=== PATIENT | female | born 1995 | race Caucasian/White ===

== ENCOUNTER 2017-07-23 10:39 | Emergency (ER) | payer OTHER ==
[2017-07-23 11:04] VITALS: BP 119/50
--- NOTE | 2017-07-23 12:22 | UC ---
Eye Complaint HPI - HPI Summary HPI Summary: WOKE THIS MORNING WITH RED EYE CRUSTED SHUT WITH GREEN GOOP. SLIGHTLY ITHCY. NO PAIN. - History of Current Complaint Chief Complaint: UCEye Stated Complaint: EYE COMPLAINT Time Seen by Provider: 07/23/17 11:32 Hx Obtained From: Patient Hx Last Menstrual Period: 06/30/17 ?: No Onset/Duration: Sudden Onset, Still Present Timing: Constant Severity Initially: Moderate Severity Currently: Moderate Pain Intensity: 0 Pain Scale Used: 0-10 Numeric Location of Injury: Conjunctiva Aggravating Factor(s): Nothing Alleviating Factor(s): Nothing Associated Signs And Symptoms: Positive: Drainage (Purulent). Negative: Vision Impairment Bilateral, Fever, Swelling - Risk Factors Penetrating Injury Risk Factor: Negative - Allergies/Home Medications Allergies/Adverse Reactions: Allergies Allergy/AdvReac Type Severity Reaction Status Date / Time Penicillins Allergy Anaphylatic Verified 07/23/17 10:59 Shock PMH/Surg Hx/FS Hx/Imm Hx Previously Healthy: Yes - Surgical History Surgical History: None - Family History Known Family History: Negative: Cardiac Disease, Hypertension, Diabetes - Social History Occupation: Employed Full-time Lives: With Family Alcohol Use: None Substance Use Type: None Smoking Status (MU): Light Every Day Tobacco Smoker Type: Cigarettes Amount Used/How Often: 3 CIGS/DAY Cessation Counseling: Patient Advised to Stop - Immunization History Most Recent Influenza Vaccination: 2017 Review of Systems Constitutional: Negative Skin: Negative Eyes: Drainage, Eye Redness ENT: Negative Respiratory: Negative Cardiovascular: Negative Gastrointestinal: Negative Neurological: Negative Is Patient Immunocompromised?: No All Other Systems Reviewed And Are Negative: Yes Physical Exam Triage Information Reviewed: Yes Vital Signs: Initial Vital Signs Temp 97.6 F 07/23/17 11:00 Pulse 73 07/23/17 11:00 Resp 16 07/23/17 11:00 BP 119/50 07/23/17 11:00 Pulse Ox 99 07/23/17 11:00 Vital Signs Reviewed: Yes Eyes: Positive: Conjunctiva Inflamed, Discharge - TRACE GREEN - Additional Comments Appearance: Well-Appearing, No Pain Distress, Well-Nourished ENT: TMs erythematous and bulging on R side. Pharyngeal erythema. Maxillary sinus tenderness bilaterally Neck: Normal, Supple Respiratory/Lung Sounds: Lungs clear, Normal breath sounds, No respiratory distress, No accessory muscle use Cardiovascular: RRR, No murmur Musculoskeletal: Normal Neurological: Alert, muscle tone normal Psychiatric: Normal, age appropriate behavior Skin: Normal, other -- Warm, Dry, Normal color VITAL SIGNS REVIEWED Eye Complaint Course/Dx - Differential Dx/Diagnosis Differential Diagnosis/HQI/PQRI: Conjunctivitis, Other - ALLERGIES Provider Diagnoses: CONJUNCTIVITIS Discharge - Discharge Plan Condition: Stable Disposition: HOME Prescriptions: Polymyx/Trimethoprim OPTH* [Polytrim OPHTH*] 1 drop LEFT EYE Q3H #1 btl Patient Education Materials: Conjunctivitis (ED) Referrals: No Primary Care Phys,NOPCP [Primary Care Provider] - Additional Instructions: FOLLOW-UP CARE: You should establish with a private physician for follow-up care in 3-5 days. If you are unable to get a timely appointment, or if you are worsening, call us or return for re-evaluation. An additional resource available to assist in finding the appropriate physician for your health care needs is the [facility]erral [facility]. You may contact them by calling [phone].
== END 2017-07-23 12:06 | disposition home or self-care (01) ==
LOC: UCCORT 10:39
DX: H10.32 Unspecified acute conjunctivitis, left eye (principal); F17.210 Nicotine dependence, cigarettes, uncomplicated; Z71.6 Tobacco abuse counseling
CPT/HCPCS: 99212; G0463

== ENCOUNTER 2017-08-12 10:59 | Emergency (ER) | payer OTHER ==
--- NOTE | 2017-08-12 12:16 | UC ---
Respiratory Complaint HPI - HPI Summary HPI Summary: 22 year old female with cough. FOR A MONTHS, RIBS HURT . COUGH. GREEN MUCUS. TODAY BLOOD STREAKED MUCUS. NO ENERGY. ACHEY. [ End ] - History of Current Complaint Chief Complaint: UCRespiratory Stated Complaint: COUGH,BILATERAL RIB PAIN Time Seen by Provider: 08/12/17 12:09 Hx Obtained From: Patient Hx Last Menstrual Period: 07/31/17 Onset/Duration: Gradual Onset Timing: Constant Severity Initially: Mild Character: Cough: Productive Associated Signs And Symptoms: Positive: Negative - Risk Factors Cardiac Risk Factors: Negative - Allergies/Home Medications Allergies/Adverse Reactions: Allergies Allergy/AdvReac Type Severity Reaction Status Date / Time Penicillins Allergy Anaphylatic Verified 08/12/17 11:45 Shock PMH/Surg Hx/FS Hx/Imm Hx Previously Healthy: Yes - Surgical History Surgical History: None - Family History Known Family History: Negative: Cardiac Disease, Hypertension, Diabetes - Social History Lives: Alone Alcohol Use: None Substance Use Type: None Smoking Status (MU): Light Every Day Tobacco Smoker Type: Cigarettes Amount Used/How Often: 2 CIGS PER DAY Household Exposure Type: Cigarettes Cessation Counseling: Patient Advised to Stop - Immunization History Most Recent Influenza Vaccination: 2017 Review of Systems ENT: Sore Throat, Nasal Discharge, Sinus Congestion Respiratory: Cough Is Patient Immunocompromised?: No All Other Systems Reviewed And Are Negative: Yes Physical Exam Triage Information Reviewed: Yes Appearance: Well-Appearing, No Pain Distress, Well-Nourished Vital Signs: Initial Vital Signs Temp 97.5 F 08/12/17 11:46 Pulse 72 08/12/17 11:46 Resp 20 08/12/17 11:46 BP 93/55 08/12/17 11:46 Pulse Ox 97 08/12/17 11:46 Vital Signs Reviewed: Yes Eye Exam: Normal ENT Exam: Normal ENT: Positive: Nasal congestion, Nasal drainage Dental Exam: Normal Neck exam: Normal Neck: Positive: 1 Respiratory Exam: Normal Cardiovascular Exam: Normal Musculoskeletal Exam: Normal Neurological Exam: Normal Psychological Exam: Normal Skin Exam: Normal UC Diagnostic Evaluation - Laboratory O2 Sat by Pulse Oximetry: 97 Respiratory Course/Dx - Course Course Of Treatment: U PREG NEG. XRAY NEG - Differential Dx/Diagnosis Differential Diagnosis/HQI/PQRI: Bronchitis, Lower Resp Infection, Sinusitis Provider Diagnoses: URI Discharge - Discharge Plan Condition: Good Disposition: HOME Prescriptions: Benzonatate [TESSALON 200 MG CAP] 200 mg PO TID #20 cap Fluticasone NASAL SPRAY 50MCG* [Flonase NASAL SPRAY 50MCG*] 2 spray BOTH NARES DAILY #1 btl Patient Education Materials: Upper Respiratory Infection (ED) Referrals: No Primary Care Phys,NOPCP [Primary Care Provider] - 4 Days
--- NOTE | 2017-08-12 12:50 | RAD ---
HISTORY: Cough COMPARISONS: None VIEWS: 4: Frontal dual-energy and lateral views of the chest. FINDINGS: CARDIOMEDIASTINAL SILHOUETTE: The cardiomediastinal silhouette is normal. REECE: The reece are normal. PLEURA: The costophrenic angles are sharp. No pleural abnormalities are noted. LUNG PARENCHYMA: The lungs are clear. ABDOMEN: The upper abdomen is clear. There is no subphrenic gas. BONES AND SOFT TISSUES: No bone or soft tissue abnormalities are noted. OTHER: None. IMPRESSION: NO ACTIVE CARDIOPULMONARY DISEASE.
[2017-08-12 12:59] VITALS: BP 94/68
== END 2017-08-12 13:16 | disposition home or self-care (01) ==
LOC: UCCORT 10:59
DX: J06.9 Acute upper respiratory infection, unspecified (principal); Z32.02 Encounter for pregnancy test, result negative; F17.210 Nicotine dependence, cigarettes, uncomplicated
CPT/HCPCS: 71020; 84702; 99212; G0463

== ENCOUNTER 2017-10-23 17:46 | Emergency (ER) | payer OTHER ==
[2017-10-23 18:05] VITALS: BP 102/58
--- NOTE | 2017-10-23 18:05 | UC ---
Throat Pain/Nasal Tyshawn HPI - HPI Summary HPI Summary: 22 year old female presents with complains of sore throat x 1 day. - History of Current Complaint Stated Complaint: SORE THROAT,RUNNY NOSE Time Seen by Provider: 10/23/17 18:04 Hx Obtained From: Patient Hx Last Menstrual Period: 07/31/17 Onset/Duration: Sudden Onset Severity: Moderate Pain Scale Used: 0-10 Numeric - 5 Cough: Nonproductive - Allergies/Home Medications Allergies/Adverse Reactions: Allergies Allergy/AdvReac Type Severity Reaction Status Date / Time Penicillins Allergy Anaphylatic Verified 10/23/17 18:05 Shock Home Medications: Home Medications Multivit-Min W/Fe-FA [ and Iron] 1 tab PO DAILY 10/23/17 [ History Confirmed 10/23/17] PMH/Surg Hx/FS Hx/Imm Hx Previously Healthy: Yes - Surgical History Surgical History: None - Family History Known Family History: Negative: Cardiac Disease, Hypertension, Diabetes - Social History Alcohol Use: None Substance Use Type: None Smoking Status (MU): Light Every Day Tobacco Smoker Type: Cigarettes Amount Used/How Often: 2 CIGS PER DAY Household Exposure Type: Cigarettes - Immunization History Most Recent Influenza Vaccination: 2017 Review of Systems Constitutional: Negative Skin: Negative Eyes: Negative ENT: Sore Throat, Nasal Discharge Respiratory: Negative Cardiovascular: Negative Gastrointestinal: Negative Genitourinary: Negative Motor: Negative Neurovascular: Negative Musculoskeletal: Negative Neurological: Negative Psychological: Negative All Other Systems Reviewed And Are Negative: Yes Physical Exam Triage Information Reviewed: Yes Vital Signs Reviewed: Yes Eye Exam: Normal ENT: Positive: Pharyngeal erythema, Nasal congestion, Nasal drainage, Sinus tenderness Dental Exam: Normal Neck exam: Normal Neck: Positive: 1 Respiratory Exam: Normal Cardiovascular Exam: Normal Abdominal Exam: Normal Musculoskeletal Exam: Normal Neurological Exam: Normal Psychological Exam: Normal Skin Exam: Normal Throat Pain/Nasal Course/Dx - Differential Dx/Diagnosis Provider Diagnoses: allergic rhinitis. pharyngitis Discharge - Discharge Plan Condition: Stable Disposition: HOME Prescriptions: LoraTADine TAB(NF) [Claritin 10 MG TAB(NF)] 10 mg PO DAILY #30 tab Patient Education Materials: Pharyngitis (ED), Allergic Rhinitis (ED) Forms: *Work Release Referrals: No Primary Care Phys,NOPCP [Primary Care Provider] -
== END 2017-10-23 18:38 | disposition home or self-care (01) ==
LOC: UCCORT 17:46
DX: J30.9 Allergic rhinitis, unspecified (principal); J02.9 Acute pharyngitis, unspecified; Z88.0 Allergy status to penicillin; F17.210 Nicotine dependence, cigarettes, uncomplicated
CPT/HCPCS: 87651; 99212; G0463

== ENCOUNTER 2018-01-27 09:32 | Emergency (ER) | payer OTHER ==
[2018-01-27 09:50] VITALS: BP 109/59
--- NOTE | 2018-01-27 10:06 | UC ---
Throat Pain/Nasal Tyshawn HPI - HPI Summary HPI Summary: [address] STARTED WITH SORE THROAT YESTERDAY, NOW HAS HEADACHE, COUGH , POSS FEBRILE AND BILATERAL EAR ACHES, WAS EXPOSED TO STREP AT HOME 10 days ago bf treated with strep . (+) cough. [ End ] - History of Current Complaint Chief Complaint: UCGeneralIllness Stated Complaint: SORE THROAT,EAR PAIN,HEADACHE Time Seen by Provider: 01/27/18 09:50 Hx Obtained From: Patient Hx Last Menstrual Period: 07/31/17 ?: No Onset/Duration: Sudden Onset Pain Intensity: 8 - Allergies/Home Medications Allergies/Adverse Reactions: Allergies Allergy/AdvReac Type Severity Reaction Status Date / Time Penicillins Allergy Anaphylatic Verified 01/27/18 09:42 Shock Home Medications: Home Medications Acetaminophen [Acetaminophen Extra Strength] 500 mg PO 01/27/18 [History] Citalopram TAB* [Celexa TAB*] 01/27/18 [History] PMH/Surg Hx/FS Hx/Imm Hx Previously Healthy: Yes - Surgical History Surgical History: None - Family History Known Family History: Negative: Cardiac Disease, Hypertension, Diabetes - Social History Alcohol Use: None Substance Use Type: None Smoking Status (MU): Light Every Day Tobacco Smoker Type: Cigarettes Amount Used/How Often: 1 CIG PER DAY Household Exposure Type: Cigarettes Cessation Counseling: Patient Advised to Stop - Immunization History Most Recent Influenza Vaccination: 2017 Review of Systems Constitutional: Fatigue ENT: Sore Throat, Nasal Discharge Respiratory: Cough Is Patient Immunocompromised?: No All Other Systems Reviewed And Are Negative: Yes Physical Exam Triage Information Reviewed: Yes Appearance: Well-Appearing, No Pain Distress, Well-Nourished Vital Signs: Initial Vital Signs Temp 98.8 F 01/27/18 09:41 Pulse 109 01/27/18 09:41 Resp 22 01/27/18 09:41 BP 109/59 01/27/18 09:41 Pulse Ox 100 01/27/18 09:41 Vital Signs Reviewed: Yes Eye Exam: Normal ENT Exam: Normal ENT: Positive: Pharynx normal, Nasal drainage, TMs normal. Negative: Tonsillar swelling, Tonsillar exudate Dental Exam: Normal Neck exam: Normal Neck: Positive: 1 Respiratory Exam: Normal Cardiovascular Exam: Normal Musculoskeletal Exam: Normal Neurological Exam: Normal Psychological Exam: Normal Skin Exam: Normal Throat Pain/Nasal Course/Dx - Differential Dx/Diagnosis Differential Diagnosis/HQI/PQRI: Otitis Media, Pharyngitis, Tonsillitis Provider Diagnoses: URI. Pharyngitis Discharge - Sign-Out/Discharge Documenting (check all that apply): Discharge - Discharge Plan Condition: Good Disposition: HOME Prescriptions: Benzonatate CAP* [Tessalon 100 MG CAP*] 100 mg PO TID PRN #20 cap PRN Reason: Cough Patient Education Materials: Pharyngitis (ED) Referrals: JANENE Lozano [Primary Care Provider] - If Needed - Billing Disposition and Condition Condition: GOOD Disposition: HOME
== END 2018-01-27 10:13 | disposition home or self-care (01) ==
LOC: UCCORT 09:32
DX: J06.9 Acute upper respiratory infection, unspecified (principal); J02.9 Acute pharyngitis, unspecified; Z20.89 Contact with and (suspected) exposure to other communicable diseases; Z88.0 Allergy status to penicillin; F17.210 Nicotine dependence, cigarettes, uncomplicated
CPT/HCPCS: 87651; 99212; G0463

== ENCOUNTER 2018-02-24 09:54 | Emergency (ER) | payer OTHER ==
[2018-02-24 10:34] VITALS: BP 93/60
[2018-02-24] MEDS ORDERED: Ondansetron ODT TAB* 4 MG PO ONE (10:54)
--- NOTE | 2018-02-24 10:54 | UC ---
UC General HPI - HPI Summary HPI Summary: pt is c/o nausea with vomiting x 3 since the early am. her 2 children just got over the same. denies fever, diarrhea, travel hx. is 33 weeks . no vaginal d/c or bleeding and baby is moving. feels fine otherwise. 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 nausea is now very mild. - History of Current Complaint Chief Complaint: UCGeneralIllness Stated Complaint: VOMITING/HOT-COLD CHILLS Time Seen by Provider: 02/24/18 10:47 Hx Obtained From: Patient Hx Last Menstrual Period: 07/31/17 Onset/Duration: Gradual Onset Pain Intensity: 0 Aggravating: food/drink Alleviating: gingerale Associated Signs & Symptoms: Positive: Nausea, Vomiting. Negative: Abdominal Pain, Diarrhea, Fever - Allergy/Home Medications Allergies/Adverse Reactions: Allergies Allergy/AdvReac Type Severity Reaction Status Date / Time Penicillins Allergy Anaphylatic Verified 02/24/18 10:29 Shock PMH/Surg Hx/FS Hx/Imm Hx - Additional Past Medical History Additional PMH: 33 weeks Psychological History: Depression - Surgical History Surgical History: Yes Surgery Procedure, Year, and Place: [place] teeth - Family History Known Family History: Negative: Cardiac Disease, Hypertension, Diabetes - Social History Occupation: Employed Full-time Lives: With Family Alcohol Use: None Substance Use Type: None Smoking Status (MU): Light Every Day Tobacco Smoker Type: Cigarettes Amount Used/How Often: 3-4 cigs per day Household Exposure Type: Cigarettes - Immunization History Most Recent Influenza Vaccination: 2017 Vaccination Up to Date: Yes Review of Systems Constitutional: Negative Skin: Negative Eyes: Negative ENT: Negative Respiratory: Negative Cardiovascular: Negative Gastrointestinal: Vomiting, Nausea Genitourinary: Negative Motor: Negative Neurovascular: Negative Musculoskeletal: Negative Neurological: Negative Psychological: Negative Is Patient Immunocompromised?: No All Other Systems Reviewed And Are Negative: Yes Physical Exam Triage Information Reviewed: Yes Appearance: Well-Appearing Vital Signs: Initial Vital Signs Temp 97.9 F 02/24/18 10:27 Pulse 84 02/24/18 10:27 Resp 19 02/24/18 10:27 BP 93/60 02/24/18 10:27 Pulse Ox 100 02/24/18 10:27 Eyes: Positive: Conjunctiva Clear ENT: Positive: Pharynx normal, TMs normal. Negative: Nasal congestion, Nasal drainage Neck: Positive: Supple, Nontender, No Lymphadenopathy Respiratory: Positive: Lungs clear, Normal breath sounds Cardiovascular: Positive: RRR, No Murmur Abdomen Description: Positive: Nontender, Soft, Other: - Gravid uterus. Negative: Distended, Guarding Bowel Sounds: Positive: Present Musculoskeletal: Positive: ROM Intact, No Edema Neurological: Positive: Alert Psychological: Positive: Normal Response To Family, Age Appropriate Behavior Skin Exam: Normal Course/Dx - Course Course Of Treatment: n/v already improving. pt drank Gingerale seating captain and here. had mild nausea here thus single dose of zofran given. not weak, tachycardic and taking po fluids thus IV not indicated. - Differential Dx - Multi-Symptom Provider Diagnoses: nausea, vomiting Discharge - Sign-Out/Discharge Documenting (check all that apply): Discharge - Discharge Plan Condition: Stable Disposition: HOME Patient Education Materials: Acute Nausea and Vomiting (ED) Forms: *Work Release Referrals: JANENE Lozano [Primary Care Provider] - 5 Days - Billing Disposition and Condition Condition: STABLE Disposition: HOME
== END 2018-02-24 11:11 | disposition home or self-care (01) ==
LOC: UCCORT 09:54
DX: O21.2 Late vomiting of pregnancy (principal); O99.333 Smoking (tobacco) complicating pregnancy, third trimester; Z3A.33 33 weeks gestation of pregnancy; Z88.0 Allergy status to penicillin
CPT/HCPCS: 99212; A9270-GY; G0463

== ENCOUNTER 2018-05-16 07:48 | Emergency (ER) | payer OTHER ==
[2018-05-16 08:07] VITALS: BP 96/64
--- NOTE | 2018-05-16 08:21 | UC ---
Respiratory Complaint HPI - HPI Summary HPI Summary: Cough congestion and sore throat for about 3 days. Her child has similar symptoms. Baby at home is well and no breast feeding. She denies fever or chest pain. - History of Current Complaint Chief Complaint: UCRespiratory Stated Complaint: SORE THROAT Time Seen by Provider: 05/16/18 08:13 Hx Obtained From: Patient Hx Last Menstrual Period: 06/2017 Onset/Duration: Gradual Onset, Lasting Days Timing: Constant Severity Initially: Moderate Severity Currently: Moderate Pain Intensity: 7 Character: Cough: Nonproductive Aggravating Factors: Deep Breaths, Recumbent Position Alleviating Factors: Upright Position, Spontaneous Resolution Associated Signs And Symptoms: Positive: URI, Nasal Congestion. Negative: Dyspnea, Fever, Chills, Calf Pain, Calf Swelling - Allergies/Home Medications Allergies/Adverse Reactions: Allergies Allergy/AdvReac Type Severity Reaction Status Date / Time Penicillins Allergy Anaphylatic Verified 05/16/18 08:08 Shock PMH/Surg Hx/FS Hx/Imm Hx Previously Healthy: Yes - Surgical History Surgical History: Yes Surgery Procedure, Year, and Place: [place] teeth - Family History Known Family History: Negative: Cardiac Disease, Hypertension, Diabetes - Social History Alcohol Use: None Substance Use Type: None Smoking Status (MU): Light Every Day Tobacco Smoker Type: Cigarettes Amount Used/How Often: 3-4 cigs per day Household Exposure Type: Cigarettes - Immunization History Most Recent Influenza Vaccination: 2017 Vaccination Up to Date: Yes Review of Systems ENT: Sore Throat, Sinus Congestion Respiratory: Cough All Other Systems Reviewed And Are Negative: Yes Physical Exam Triage Information Reviewed: Yes Appearance: Well-Appearing, No Pain Distress, Well-Nourished Vital Signs: Initial Vital Signs Temp 98.3 F 05/16/18 07:59 Pulse 65 05/16/18 07:59 Resp 18 05/16/18 07:59 BP 96/64 05/16/18 07:59 Pulse Ox 100 05/16/18 07:59 Vital Signs Reviewed: Yes Eyes: Positive: Conjunctiva Clear. Negative: Conjunctiva Inflamed ENT: Positive: Normal ENT inspection, Hearing grossly normal, Pharyngeal erythema, Nasal congestion, TMs normal, Uvula midline. Negative: Nasal drainage , TM bulging, TM dull, TM red, Tonsillar swelling, Tonsillar exudate, Trismus, Muffled voice, Hoarse voice, Sinus tenderness Neck: Positive: Supple, Nontender, No Lymphadenopathy Respiratory: Positive: Lungs clear, Normal breath sounds, No respiratory distress, No accessory muscle use. Negative: Respiratory distress, Decreased breath sounds, Accessory muscle use, Crackles, Rhonchi, Stridor, Wheezing Cardiovascular: Positive: No Murmur, Pulses Normal, Brisk Capillary Refill Abdomen Description: Positive: No Organomegaly, Soft. Negative: Distended, Guarding Musculoskeletal: Positive: Strength Intact, ROM Intact. Negative: No Edema Neurological: Positive: Alert, Muscle Tone Normal. Negative: Fatigued Psychological: Positive: Age Appropriate Behavior Skin: Negative: rashes UC Diagnostic Evaluation - Laboratory O2 Sat by Pulse Oximetry: 100 Respiratory Course/Dx - Differential Dx/Diagnosis Provider Diagnoses: viral uri Discharge - Sign-Out/Discharge Documenting (check all that apply): Patient Departure - Discharge Plan Condition: Good Disposition: HOME Prescriptions: GuaiFENesin DM* [Robitussin DM*] 10 ml PO Q4H PRN #180 ml PRN Reason: Cough Patient Education Materials: Upper Respiratory Infection (ED) Referrals: Oneida Lopez MD [Primary Care Provider] - Additional Instructions: Consider cough medicines and decongestants. Return here for any worsening. - Billing Disposition and Condition Condition: GOOD Disposition: Home
== END 2018-05-16 08:23 | disposition home or self-care (01) ==
LOC: UCCORT 07:48
DX: J06.9 Acute upper respiratory infection, unspecified (principal); F17.210 Nicotine dependence, cigarettes, uncomplicated; Z88.0 Allergy status to penicillin
CPT/HCPCS: 99212; G0463